=== PATIENT | female | born 1975 | race American Indian/Alaskan Native ===

== ENCOUNTER 2018-12-29 17:28 | Emergency (ER) | payer MEDICAID ==
--- NOTE | 2018-12-29 18:29 | Emergency Department Report ---
Chief Complaint: Upper Respiratory Infection Stated Complaint: COUGH/CHEST/SOB Time Seen by Provider: 12/29/18 18:24 - HPI History of Present Illness: This is a 43 y.o. female that presents with cough and SOB x 3 days. Denies pain, fever, coryza, or myalgia - ROS Review of Systems: cough and SOB - Exam Vital Signs: Vital Signs 12/29/18 18:24 Temperature 99 F Pulse Rate 86 Respiratory 20 Rate Blood Pressure 183/108 O2 Sat by Pulse 97 Oximetry MSE screening note: Focused history and physical exam performed. Due to findings the following was ordered: CXR & EKG Fast track for further evaluation. ED Disposition for MSE Condition: Stable
--- NOTE | 2018-12-29 19:29 | XRay Report ---
PROCEDURE: XR CHEST ROUTINE 2V TECHNIQUE: 2 view chest HISTORY: cough COMPARISONS: None FINDINGS: Trachea midline. Heart size normal. Patchy airspace disease left base. No pneumothorax. No sizable effusion No acute bony abnormality IMPRESSION: Left basilar airspace disease. Finding compatible with pneumonia in the appropriate clinical setting. . This document is electronically signed by Rodney Cook MD., December 29 2018 07:27:14 PM ET
[2018-12-29 20:20] VITALS: BP 150/93
--- NOTE | 2018-12-29 20:44 | Emergency Department Report ---
- General Chief Complaint: Upper Respiratory Infection Stated Complaint: COUGH/CHEST/SOB Time Seen by Provider: 12/29/18 18:24 Source: patient Mode of arrival: Ambulatory Limitations: No Limitations - History of Present Illness Initial Comments: Pt is a 43 yo female who presents to the ED with a cough that began three days ago. She states she has mild SOB which has resolved. She also has mild chest pain while coughing only. She denies any fever. Denies sick contacts. The patien t states she took an entire bottle of nyquil over the last three days. She was diagnosed with anemia during her last ED visit and states she has not been taking the iron. The patient denies any hx of HTN but pressure has been elevated on several occasions in the ED. - Related Data Previous Rx's Medication Instructions Recorded Last Taken Type levETIRAcetam [Keppra] 500 mg PO BID #60 tablet NS 11/18/14 1 Day Ago Rx ~02/03/15 Esomeprazole Magnesium [NexIUM] 40 mg PO QDAY #10 capsule. 02/04/15 Unknown Rx Docusate Sodium [Colace CAP] 100 mg PO BID PRN #30 capsule 02/20/16 Unknown Rx Ferrous Sulfate [Feosol 325 MG tab] 325 mg PO BID #60 tablet 02/20/16 Unknown Rx Ibuprofen [Motrin 800 MG tab] 800 mg PO Q8HR PRN #30 tablet 02/20/16 Unknown Rx Ondansetron [Zofran ODT TAB] 4 mg PO Q6H PRN #14 tab.rapdis 02/20/16 Unknown Rx ALBUTEROL Inhaler (OR & NICU) 2 puff IH QID PRN #200 inhalation 12/29/18 Unknown Rx [Proair] Azithromycin [Zithromax Z-OMID] 0 mg PO DAILY 5 Days tab 12/29/18 Unknown Rx Benzonatate [Tessalon Perles] 100 mg PO Q8HR #30 capsule 12/29/18 Unknown Rx Prednisone [predniSONE 10 mg 10 mg PO .TAPER 6 Days #1 tab.ds.pk 12/29/18 Unknown Rx (6-Day Pack, 21 Tabs)] Allergies Allergy/AdvReac Type Severity Reaction Status Date / Time Penicillins Allergy Rash Verified 02/19/16 13:58 ED Review of Systems ROS: Stated complaint: COUGH/CHEST/SOB Other details as noted in HPI Comment: All other systems reviewed and negative ED Past Medical Hx - Past Medical History Previous Medical History?: Yes Hx Seizures: Yes Additional medical history: Borderline cardiomegaly, history of seizure 1, history of gallstones - Surgical History Past Surgical History?: Yes Additional Surgical History: - Social History Smoking Status: Never Smoker Substance Use Type: None - Medications Home Medications: Home Medications Medication Instructions Recorded Confirmed Last Taken Type levETIRAcetam [Keppra] 500 mg PO BID #60 tablet NS 11/18/14 02/04/15 1 Day Ago Rx ~02/03/15 Esomeprazole Magnesium [NexIUM] 40 mg PO QDAY #10 capsule.dr 02/04/15 Unknown Rx Docusate Sodium [Colace CAP] 100 mg PO BID PRN #30 capsule 02/20/16 Unknown Rx Ferrous Sulfate [Feosol 325 MG tab] 325 mg PO BID #60 tablet 02/20/16 Unknown Rx Ibuprofen [Motrin 800 MG tab] 800 mg PO Q8HR PRN #30 tablet 02/20/16 Unknown Rx Ondansetron [Zofran ODT TAB] 4 mg PO Q6H PRN #14 tab.rapdis 02/20/16 Unknown Rx ALBUTEROL Inhaler (OR & NICU) 2 puff IH QID PRN #200 inhalation 12/29/18 Unknown Rx [Proair] Azithromycin [Zithromax Z-OMID] 0 mg PO DAILY 5 Days tab 12/29/18 Unknown Rx Benzonatate [Tessalon Perles] 100 mg PO Q8HR #30 capsule 12/29/18 Unknown Rx Prednisone [predniSONE 10 mg 10 mg PO .TAPER 6 Days #1 tab.ds.pk 12/29/18 Unknown Rx (6-Day Pack, 21 Tabs)] ED Physical Exam - General Limitations: No Limitations General appearance: alert, in no apparent distress - Head Head exam: Present: atraumatic, normocephalic - Eye Eye exam: Present: normal appearance - ENT ENT exam: Present: normal orophraynx, mucous membranes moist - Respiratory Respiratory exam: Present: normal lung sounds bilaterally. Absent: respiratory distress, wheezes, rales, rhonchi, stridor, chest wall tenderness, accessory muscle use, decreased breath sounds, prolonged expiratory - Cardiovascular Cardiovascular Exam: Present: regular rate, normal rhythm, normal heart sounds. Absent: systolic murmur, rubs, gallop - Neurological Exam Neurological exam: Present: alert, oriented X3 - Psychiatric Psychiatric exam: Present: normal affect, normal mood - Skin Skin exam: Present: warm, dry, intact ED Course Vital Signs 12/29/18 12/29/18 12/29/18 18:24 20:19 21:35 Temperature 99 F Pulse Rate 86 77 63 Respiratory 20 18 17 Rate Blood Pressure 183/108 Blood Pressure 150/93 [Right] O2 Sat by Pulse 97 99 100 Oximetry ED Medical Decision Making - Lab Data Result diagrams: 12/29/18 20:19 12/29/18 20:19 Laboratory Results - last 24 hr 12/29/18 12/29/18 20:19 20:19 WBC 3.5 L RBC 5.11 H Hgb 13.5 Hct 40.9 MCV 80 MCH 26 L MCHC 33 RDW 14.4 Plt Count 252 Lymph % (Auto) 38.2 H Gulf % (Auto) 12.0 H Eos % (Auto) 1.9 Baso % (Auto) 0.3 Lymph # 1.3 Gulf # 0.4 Eos # 0.1 Baso # 0.0 Seg Neutrophils % 47.6 Seg Neutrophils # 1.7 L Sodium 137 Potassium 4.2 Chloride 100.2 Carbon Dioxide 26 Anion Gap 15 BUN 8 Creatinine 0.9 Estimated GFR > 60 BUN/Creatinine Ratio 9 Glucose 90 Calcium 8.5 Total Bilirubin 0.20 AST 19 ALT 10 Alkaline Phosphatase 59 Total Protein 7.7 Albumin 3.5 L Albumin/Globulin Ratio 0.8 Vital Signs 12/29/18 12/29/18 12/29/18 18:24 20:19 21:35 Temperature 99 F Pulse Rate 86 77 63 Respiratory 20 18 17 Rate Blood Pressure 183/108 Blood Pressure 150/93 [Right] O2 Sat by Pulse 97 99 100 Oximetry - EKG Data EKG shows normal: sinus rhythm, axis, intervals, QRS complexes, ST-T waves Rate: normal - Radiology Data Radiology results: report reviewed PROCEDURE: XR CHEST ROUTINE 2V TECHNIQUE: 2 view chest HISTORY: cough COMPARISONS: None FINDINGS: Trachea midline. Heart size normal. Patchy airspace disease left base. No pneumothorax. No sizable effusion No acute bony abnormality IMPRESSION: Left basilar airspace disease. Finding compatible with pneumonia in the appropriate clinical setting. . This document is electronically signed by Rodney Cook MD., December 29 2018 07:27 :14 PM ET - Medical Decision Making Pt is a 43 yo female who presents to the ED with a cough that began three days ago. She states she has mild SOB which has resolved. She denies any fever. Denies sick contacts. CXR shows possible developing PNA. Will treat pt for CAP. Pt is afebrile and oxygen saturation is WNL. No leukocytosis. Pt will need to follow up with her PCP in the next 2-3 days. Pt will also need to follow up with her PCP regarding the elevation in her blood pressure on several ED visits. Discussed with pt to take all medication as prescribed. Return to the ED for any new or worsening symptoms. - Differential Diagnosis PNA, URI, Viral syndrome Critical care attestation.: If time is entered above; I have spent that time in minutes in the direct care of this critically ill patient, excluding procedure time. ED Disposition Clinical Impression: PNA (pneumonia) Qualifiers: Pneumonia type: due to unspecified organism Laterality: left Lung location: lower lobe of lung Qualified Code(s): J18.1 - Lobar pneumonia, unspecified organism Disposition: DC- TO HOME OR SELFCARE Is pt being admited?: No Does the pt Need Aspirin: No Condition: Stable Instructions: Community-acquired Pneumonia (ED) Additional Instructions: Follow up with your primary care doctor in the next 2-3 days. Discuss with your doctor about the elevation in your blood pressure and about being treated for PNA. Take all medications as prescribed. Return to the emergency room for any new or worsening symptoms. Prescriptions: Prednisone [predniSONE 10 mg (6-Day Pack, 21 Tabs)] 10 mg PO .TAPER 6 Days #1 tab.ds.pk ALBUTEROL Inhaler (OR & NICU) [Proair] 2 puff IH QID PRN #200 inhalation PRN Reason: Shortness Of Breath Benzonatate [Tessalon Perles] 100 mg PO Q8HR #30 capsule Azithromycin [Zithromax Z-OMID] 0 mg PO DAILY 5 Days tab Referrals: ENOC PIERCE MD [Primary Care Provider] - 2-3 Days Time of Disposition: 21:29 Print Language: FAROESE
[2018-12-29 20:54] LABS: Basophils % (Auto) 0.3 % (0.0-1.8); Eosinophils # (Auto) 0.1 K/mm3 (0.0-0.4); Eosinophils % (Auto) 1.9 % (0.0-4.3); Hematocrit 40.9 % (30.3-42.9); Hemoglobin 13.5 gm/dl (10.1-14.3); Lymphocytes # (Auto) 1.3 K/mm3 (1.2-5.4); Lymphocytes % (Auto) 38.2 % (13.4-35.0); Mean Corpuscular HGB Conc 33 % (30-34); Mean Corpuscular Volume 80 fl (79-97); Monocytes # (Auto) 0.4 K/mm3 (0.0-0.8); Platelet Count 252 K/mm3 (140-440); Red Blood Count 5.11 M/mm3 (3.65-5.03); Red Cell Distribution Width 14.4 % (13.2-15.2)
[2018-12-29 21:23] LABS: Alanine Aminotransferase 10 units/L (7-56); Albumin 3.5 g/dL (3.9-5); BUN/Creatinine Ratio 9; Blood Urea Nitrogen 8 mg/dL (7-17); Calcium 8.5 mg/dL (8.4-10.2); Hemolysis Index 6
== END 2018-12-29 21:35 | disposition home or self-care (01) ==
LOC: ED 17:28
DX: J18.1 Lobar pneumonia, unspecified organism (principal)
CPT/HCPCS: 36415; 71046; 80053; 85025; 93005; 93010

== ENCOUNTER 2021-11-07 08:18 | Emergency (ER) | payer MEDICAID ==
[2021-11-07 08:30] VITALS: BP 172/99
[2021-11-07] MEDS ORDERED: LIDOCAINE VISCOUS 2% 15 ML ORAL LIQD PO ONE (09:19)
--- NOTE | 2021-11-07 09:29 | Emergency Department Report ---
ED ENT HPI - General Chief complaint: Dental/Oral Stated complaint: BURNT MOUTH X2 DAYS AGO PAINFUL Time Seen by Provider: 11/07/21 08:59 Source: patient Mode of arrival: Ambulatory Limitations: No Limitations - History of Present Illness Initial comments: 46-year-old morbid obese -[place] female presents to the emergency room stating that she has mouth pain for 2 days. Patient reports that she was eating hot soup and seemed to have burned the inside of her mouth. She states has been taking [id number] pain medication and has not improved. She states that this morning she woke up with some mild swelling to her right upper jaw area. She states that the most discomfort on the right side. She states she has tried Goody powders ibuprofen and Tylenol without much relief. She does have a primary care provider at [facility]. complaint: other (Mouth soreness) Onset/Timin -: days(s) Location: other (Roof of her mouth and right side cheek and upper jaw tenderness) Severity: severe Severity scale (0 -10): 8 Quality: aching, sharp Improves with: none Worsens with: none Context- Dental: other (Drinking very hot soup) Associated Symptoms: gum swelling - Related Data Previous Rx's Medication Instructions Recorded Last Taken Type levETIRAcetam [Keppra] 500 mg PO BID #60 tablet NS 11/18/14 1 Day Ago Rx ~02/03/15 Esomeprazole Magnesium [NexIUM] 40 mg PO QDAY #10 capsule. 02/04/15 Unknown Rx Docusate Sodium [Colace CAP] 100 mg PO BID PRN #30 capsule 02/20/16 Unknown Rx Ferrous Sulfate [Feosol 325 MG tab] 325 mg PO BID #60 tablet 02/20/16 Unknown Rx Ibuprofen [Motrin 800 MG tab] 800 mg PO Q8HR PRN #30 tablet 02/20/16 Unknown Rx Ondansetron [Zofran ODT TAB] 4 mg PO Q6H PRN #14 tab.rapdis 02/20/16 Unknown Rx Albuterol Mdi (or & Nicu Only) 2 puff IH QID PRN #200 inhalation 12/29/18 Unknown Rx [Proair] Azithromycin [Zithromax Z-OMID] 0 mg PO DAILY 5 Days tab 12/29/18 Unknown Rx Benzonatate [Tessalon Perles] 100 mg PO Q8HR #30 capsule 12/29/18 Unknown Rx Prednisone [predniSONE 10 mg 10 mg PO .TAPER 6 Days #1 tab.ds.pk 12/29/18 Unknown Rx (6-Day Pack, 21 Tabs)] Albuterol Mdi (or & Nicu Only) 2 puff IH QID PRN #1 inhalation 05/04/20 Unknown Rx [ProAir HFA Inhaler] Azithromycin [Zithromax] 500 mg PO QDAY #5 tablet 05/04/20 Unknown Rx guaiFENesin/CODEINE [Robitussin AC] 5 ml PO Q6H PRN #120 ml 05/04/20 Unknown Rx Amoxicillin/K Clav Tab [Augmentin 1 tab PO Q12HR 7 Days #14 tab 11/07/21 Unknown Rx 875 mg] Ketorolac [Toradol] 10 mg PO Q6H PRN #12 11/07/21 Unknown Rx Allergies Allergy/AdvReac Type Severity Reaction Status Date / Time No Known Allergies Allergy Verified 11/07/21 08:31 ED Dental HPI - General Chief complaint: Dental/Oral Stated complaint: BURNT MOUTH X2 DAYS AGO PAINFUL Time Seen by Provider: 11/07/21 08:59 Source: patient Mode of arrival: Ambulatory Limitations: No Limitations - Related Data Previous Rx's Medication Instructions Recorded Last Taken Type levETIRAcetam [Keppra] 500 mg PO BID #60 tablet NS 11/18/14 1 Day Ago Rx ~02/03/15 Esomeprazole Magnesium [NexIUM] 40 mg PO QDAY #10 capsule. 02/04/15 Unknown Rx Docusate Sodium [Colace CAP] 100 mg PO BID PRN #30 capsule 02/20/16 Unknown Rx Ferrous Sulfate [Feosol 325 MG tab] 325 mg PO BID #60 tablet 02/20/16 Unknown Rx Ibuprofen [Motrin 800 MG tab] 800 mg PO Q8HR PRN #30 tablet 02/20/16 Unknown Rx Ondansetron [Zofran ODT TAB] 4 mg PO Q6H PRN #14 tab.rapdis 02/20/16 Unknown Rx Albuterol Mdi (or & Nicu Only) 2 puff IH QID PRN #200 inhalation 12/29/18 Unknown Rx [Proair] Azithromycin [Zithromax Z-OMID] 0 mg PO DAILY 5 Days tab 12/29/18 Unknown Rx Benzonatate [Tessalon Perles] 100 mg PO Q8HR #30 capsule 12/29/18 Unknown Rx Prednisone [predniSONE 10 mg 10 mg PO .TAPER 6 Days #1 tab.ds.pk 12/29/18 Unknown Rx (6-Day Pack, 21 Tabs)] Albuterol Mdi (or & Nicu Only) 2 puff IH QID PRN #1 inhalation 05/04/20 Unknown Rx [ProAir HFA Inhaler] Azithromycin [Zithromax] 500 mg PO QDAY #5 tablet 05/04/20 Unknown Rx guaiFENesin/CODEINE [Robitussin AC] 5 ml PO Q6H PRN #120 ml 05/04/20 Unknown Rx Amoxicillin/K Clav Tab [Augmentin 1 tab PO Q12HR 7 Days #14 tab 11/07/21 Unknown Rx 875 mg] Ketorolac [Toradol] 10 mg PO Q6H PRN #12 11/07/21 Unknown Rx Allergies Allergy/AdvReac Type Severity Reaction Status Date / Time No Known Allergies Allergy Verified 11/07/21 08:31 ED Review of Systems ROS: Stated complaint: BURNT MOUTH X2 DAYS AGO PAINFUL Other details as noted in HPI Comment: All other systems reviewed and negative ED Past Medical Hx - Past Medical History Hx Hypertension: Yes Hx Seizures: Yes Additional medical history: Borderline cardiomegaly, history of seizure 1, history of gallstones - Surgical History Additional Surgical History: - Social History Smoking Status: Never Smoker Substance Use Type: None - Medications Home Medications: Home Medications Medication Instructions Recorded Confirmed Last Taken Type levETIRAcetam [Keppra] 500 mg PO BID #60 tablet NS 11/18/14 02/04/15 1 Day Ago Rx ~02/03/15 Esomeprazole Magnesium [NexIUM] 40 mg PO QDAY #10 capsule. 02/04/15 Unknown Rx Docusate Sodium [Colace CAP] 100 mg PO BID PRN #30 capsule 02/20/16 Unknown Rx Ferrous Sulfate [Feosol 325 MG tab] 325 mg PO BID #60 tablet 02/20/16 Unknown Rx Ibuprofen [Motrin 800 MG tab] 800 mg PO Q8HR PRN #30 tablet 02/20/16 Unknown Rx Ondansetron [Zofran ODT TAB] 4 mg PO Q6H PRN #14 tab.rapdis 02/20/16 Unknown Rx Albuterol Mdi (or & Nicu Only) 2 puff IH QID PRN #200 inhalation 12/29/18 Unknown Rx [Proair] Azithromycin [Zithromax Z-OMID] 0 mg PO DAILY 5 Days tab 12/29/18 Unknown Rx Benzonatate [Tessalon Perles] 100 mg PO Q8HR #30 capsule 12/29/18 Unknown Rx Prednisone [predniSONE 10 mg 10 mg PO .TAPER 6 Days #1 tab.ds.pk 12/29/18 Unknown Rx (6-Day Pack, 21 Tabs)] Albuterol Mdi (or & Nicu Only) 2 puff IH QID PRN #1 inhalation 05/04/20 Unknown Rx [ProAir HFA Inhaler] Azithromycin [Zithromax] 500 mg PO QDAY #5 tablet 05/04/20 Unknown Rx guaiFENesin/CODEINE [Robitussin AC] 5 ml PO Q6H PRN #120 ml 05/04/20 Unknown Rx Amoxicillin/K Clav Tab [Augmentin 1 tab PO Q12HR 7 Days #14 tab 11/07/21 Unknown Rx 875 mg] Ketorolac [Toradol] 10 mg PO Q6H PRN #12 11/07/21 Unknown Rx ED Physical Exam - General Limitations: No Limitations ED Course Vital Signs 11/07/21 08:29 Temperature 98.6 F Pulse Rate 71 Respiratory 14 Rate Blood Pressure 172/99 [Left] O2 Sat by Pulse 100 Oximetry ED Medical Decision Making - Medical Decision Making 46-year-old morbid obese -[place] female presents to the emergency room stating that she has mouth pain for 2 days. Patient reports that she was eating hot soup and seemed to have burned the inside of her mouth. She states has been taking [id number] pain medication and has not improved. She states that this morning she woke up with some mild swelling to her right upper jaw area. She states that the most discomfort on the right side. She states she has tried Goody powders ibuprofen and Tylenol without much relief. She does have a primary care provider at [facility]. We will try viscous lidocaine. Recommend patient to suck on ice. Toradol for pain. Augmentin for 7 days she may have a superimposed infection follow-up with their primary care provider. Critical care attestation.: If time is entered above; I have spent that time in minutes in the direct care of this critically ill patient, excluding procedure time. ED Disposition Clinical Impression: Burn, mouth, Infection of mouth Disposition: 01 HOME / SELF CARE / HOMELESS Is pt being admited?: No Does the pt Need Aspirin: No Condition: Stable Instructions: Cellulitis, Adult, [id number] Additional Instructions: Complete antibiotics as prescribed. Pain medication as needed. Increase your fluid intake. You may want to suck on ice or popsicles to help with your pain. Follow-up with your primary care provider. Prescriptions: Amoxicillin/K Clav Tab [Augmentin 875 mg] 1 tab PO Q12HR 7 Days #14 tab Ketorolac [Toradol] 10 mg PO Q6H PRN #12 PRN Reason: Pain Referrals: [facility] [Provider Group] - 3-5 Days Forms: Work/School Release Form(ED)
== END 2021-11-07 09:52 | disposition home or self-care (01) ==
LOC: ED 08:18
DX: K13.79 Other lesions of oral mucosa (principal); K12.2 Cellulitis and abscess of mouth; I10 Essential (primary) hypertension
CPT/HCPCS: 99282